=== PATIENT | female | born 1955 | race Caucasian/White ===

== ENCOUNTER → 2023-11-01 15:16 | Outpatient (REF) | payer OTHER, SELFPAY | LOC: HWWDC 15:16 | PROVIDERS: ATTENDING PHYSICIAN Surgery; FAMILY PHYSICIAN Internal Medicine | DX: Z12.31 Encounter for screening mammogram for malignant neoplasm of breast (principal) | CPT/HCPCS: 77063; 77067 ==

== ENCOUNTER → 2024-04-19 13:42 | Outpatient (REF) | payer MEDICARE, OTHER, SELFPAY | LOC: RAD 13:42 | PROVIDERS: FAMILY PHYSICIAN Internal Medicine | DX: S22.42XA Multiple fractures of ribs, left side, initial encounter for closed fracture (principal) | CPT/HCPCS: 71046 ==

== ENCOUNTER → 2024-08-16 11:20 | Outpatient (REF) | payer MEDICARE, OTHER, SELFPAY | LOC: RAD 11:20 | PROVIDERS: ATTENDING PHYSICIAN Internal Medicine Hematology & Oncology; FAMILY PHYSICIAN Internal Medicine | DX: M81.0 Age-related osteoporosis without current pathological fracture (principal); C50.312 Malignant neoplasm of lower-inner quadrant of left female breast | CPT/HCPCS: 77080 ==

== ENCOUNTER → 2024-11-01 15:03 | Outpatient (REF) | payer MEDICARE, OTHER, SELFPAY ==
[2024-11-01 15:14] LABS: % Basophils 0.5 % (0-2); % Eosinophils 1.8 % (0-6); % Immature Granulocytes 0.8 % (0-0.5); % Lymphocytes 36.2 % (20.5-51.1); % Monocytes 7.7 % (1.7-9.3); Absolute Eosinophils 0.1 10^3/uL (0-0.7); Absolute Immature Granulocytes 0.1 10^3/uL (0-0.05); Absolute Lymphocytes 2.4 10^3/uL (1.2-3.4); Absolute Monocytes 0.5 10^3/uL (0.1-0.6); Absolute Neutrophils 3.4 10^3/uL (1.4-6.5); Hematocrit 44.1 % (37.0-47.0); Mean Corp Hgb Conc. 31.7 g/dL (33.0-37.0); Mean Corpuscular Hgb 30.7 pg (27.0-31.0); Mean Corpuscular Volume 96.7 fL (81.0-99.0); Mean Platelet Volume 9.4 fL (7.4-10.4); Platelet Count 381 10^3/uL (130-400); Red Blood Cell Count 4.56 10^6/uL (4.20-5.40); Red Cell Dist. Width 14.4 % (11.5-14.5); White Blood Cell Count 6.5 10^3/uL (4.8-10.8)
[2024-11-01 16:06] LABS: ALT (SGPT) 15 U/L (0-35); AST (SGOT) 21 U/L (14-36); Albumin 4.6 g/dl (3.5-5.0); Alkaline Phosphatase 78 U/L (38-126); Blood Urea Nitrogen 25 mg/dl (7-17); Calcium 10.3 mg/dl (8.4-10.2); Carbon Dioxide 24 mmol/L (22-30); Chloride 107 mmol/L (98-107); Glucose 98 mg/dl (70-99); Potassium 4.7 mmol/L (3.5-5.1); Sodium 140 mmol/L (135-145); Total Bilirubin 0.5 mg/dl (0.2-1.3); Total Protein 6.8 g/dl (6.3-8.2); eGFR 37.96
== END ==
LOC: OIDL 15:03
PROVIDERS: ATTENDING PHYSICIAN Internal Medicine Hematology & Oncology; FAMILY PHYSICIAN Internal Medicine
DX: M81.0 Age-related osteoporosis without current pathological fracture (principal)
CPT/HCPCS: 36415; 80053; 85025

== ENCOUNTER → 2024-11-19 13:03 | Outpatient (REF) | payer MEDICARE, OTHER, SELFPAY | LOC: RCS 13:03 | PROVIDERS: ATTENDING PHYSICIAN Internal Medicine Cardiovascular Disease; FAMILY PHYSICIAN Internal Medicine | DX: R94.31 Abnormal electrocardiogram [ECG] [EKG] (principal) | CPT/HCPCS: 93306 ==

== ENCOUNTER → 2024-12-20 14:08 | Outpatient (REF) | payer MEDICARE, OTHER, SELFPAY | LOC: WDC 14:08 | PROVIDERS: ATTENDING PHYSICIAN Internal Medicine Hematology & Oncology; FAMILY PHYSICIAN Hospitalist | DX: R05.3 Chronic cough (principal); Z12.31 Encounter for screening mammogram for malignant neoplasm of breast; C50.312 Malignant neoplasm of lower-inner quadrant of left female breast | CPT/HCPCS: 71046 ==

== ENCOUNTER → 2025-05-06 09:09 | Outpatient (REF) | payer MEDICARE, OTHER, SELFPAY | LOC: HWRAD 09:09 | PROVIDERS: ATTENDING PHYSICIAN Anesthesiology; FAMILY PHYSICIAN Internal Medicine | DX: M54.16 Radiculopathy, lumbar region (principal) | CPT/HCPCS: 72131 ==

== ENCOUNTER → 2025-05-13 15:55 | Outpatient (REF) | payer MEDICARE, OTHER, SELFPAY ==
[2025-05-13 16:32] LABS: Hematocrit 40.7 % (37.0-47.0); Hemoglobin 13.0 g/dL (12.0-16.0); Mean Corp Hgb Conc. 31.9 g/dL (33.0-37.0); Mean Corpuscular Volume 95.3 fL (81.0-99.0); Nucleated Red Blood Cells % 0 %; Platelet Count 363 10^3/uL (130-400); Red Cell Dist. Width 14.0 % (11.5-14.5)
[2025-05-13 16:54] LABS: ALT (SGPT) 12 U/L (0-35); AST (SGOT) 19 U/L (14-36); Albumin 4.7 g/dl (3.5-5.0); Alkaline Phosphatase 51 U/L (38-126); Blood Urea Nitrogen 16 mg/dl (7-17); Calcium 10.2 mg/dl (8.4-10.2); Carbon Dioxide 24 mmol/L (22-30); Chloride 108 mmol/L (98-107); Glucose 130 mg/dl (70-99); Potassium 4.4 mmol/L (3.5-5.1); Sodium 142 mmol/L (135-145); Total Protein 7.0 g/dl (6.3-8.2); eGFR > 60.00
== END ==
LOC: REG 15:55
PROVIDERS: ATTENDING PHYSICIAN Internal Medicine Hematology & Oncology; FAMILY PHYSICIAN Internal Medicine
DX: M81.0 Age-related osteoporosis without current pathological fracture (principal); C50.312 Malignant neoplasm of lower-inner quadrant of left female breast
CPT/HCPCS: 36415; 80053; 85025

== ENCOUNTER → 2025-06-24 11:59 | Outpatient (REF) | payer MEDICARE, OTHER, SELFPAY ==
[2025-06-24 12:54] LABS: Hematocrit 40.5 % (37.0-47.0); Hemoglobin 12.5 g/dL (12.0-16.0); Mean Corp Hgb Conc. 30.9 g/dL (33.0-37.0); Mean Corpuscular Volume 101.0 fL (81.0-99.0); Nucleated Red Blood Cells % 0 %; Platelet Count 256 10^3/uL (130-400); Red Cell Dist. Width 15.1 % (11.5-14.5)
[2025-06-24 13:32] LABS: ALT (SGPT) 12 U/L (0-35); AST (SGOT) 16 U/L (14-36); Albumin 4.5 g/dl (3.5-5.0); Alkaline Phosphatase 45 U/L (38-126); Blood Urea Nitrogen 12 mg/dl (7-17); C-Reactive Protein < 5.00 mg/L (0.0-10.00); Calcium 9.6 mg/dl (8.4-10.2); Carbon Dioxide 23 mmol/L (22-30); Chloride 113 mmol/L (98-107); Glucose 99 mg/dl (70-99); HDL Cholesterol 53 mg/dl; LDL Cholesterol, Calculated 134 mg/dl; Potassium 4.9 mmol/L (3.5-5.1); Sodium 142 mmol/L (135-145); Total Protein 6.7 g/dl (6.3-8.2); Very Low Density Lipoprotein 33 mg/dl (0-30); eGFR > 60.00
[2025-06-24 13:50] LABS: Vitamin D, 25-OH*** 31.1 ng/mL (30-80)
[2025-06-24 14:03] LABS: TSH 1.88 uIU/ml (0.47-4.68)
[2025-06-24 14:23] LABS: Vitamin B12 184 pg/ml (239-931)
[2025-06-26 10:50] LABS: Lyme Antibody Screen, EIA Negative (Negative)
== END ==
LOC: REG 11:59
PROVIDERS: ATTENDING PHYSICIAN Nurse Practitioner
DX: F19.939 Other psychoactive substance use, unspecified with withdrawal, unspecified (principal); I10 Essential (primary) hypertension; F41.8 Other specified anxiety disorders; G47.00 Insomnia, unspecified; E53.8 Deficiency of other specified B group vitamins; Z85.3 Personal history of malignant neoplasm of breast; S82.832A Other fracture of upper and lower end of left fibula, initial encounter for closed fracture; M79.18 Myalgia, other site
CPT/HCPCS: 36415; 80053; 80061; 82306; 82607; 84436; 84443; 84445; 85025; 85652; 86038; 86140; 86618

== ENCOUNTER → 2025-09-04 15:57 | Outpatient (REF) | payer MEDICARE, OTHER, SELFPAY | LOC: RAD 15:57 | PROVIDERS: ATTENDING PHYSICIAN Anesthesiology | DX: M54.16 Radiculopathy, lumbar region (principal); M54.14 Radiculopathy, thoracic region | CPT/HCPCS: 72072; 72100 ==